=== PATIENT | male | born 1965 | race Caucasian/White ===

== ENCOUNTER → 2018-01-07 | Outpatient (CLI) | payer OTHER ==
[~2018-01-07] MED LIST: ACET-1600 PO; IBUP200C8 PO
== END | disposition home or self-care (01) ==
LOC: STAR 12:30
PROVIDERS: ATTEND Surgery
DX: Z02.9 Encounter for administrative examinations, unspecified (principal)

== ENCOUNTER 2018-01-12 07:39 | Day surgery (SDC) | payer OTHER ==
[~2018-01-12] VITALS: Ht 182.9 cm; Wt 105.8 kg
[~2018-01-12 07:39] MED LIST changes: +BUPIVACAINE/PF-EPI 0.5% 1:200K ONE
[2018-01-12] MEDS ORDERED: LACTATED RINGERS 1,000 ML IV SCH (08:13)
[2018-01-12] MEDS ORDERED: ACETAMINOPHEN 500 MG TABLET ONE (08:21)
[2018-01-12] MEDS ORDERED: MEPERIDINE/PF 25MG/0.5ML IVPush PRN (08:30)
[2018-01-12] MEDS ORDERED: LABETALOL 5MG/ML, 20ML IV PRN (08:30)
[2018-01-12] MEDS ORDERED: HYDROmorphone 1 MG/ML, 1ML IV PRN (08:30)
[2018-01-12] MEDS ORDERED: PROCHLORPERAZINE 5 MG/ML, 2ML IV PRN (08:30)
[2018-01-12] MEDS ORDERED: HALOPERIDOL 5 MG/ML IV PRN (08:30)
[2018-01-12] MEDS ORDERED: FENTANYL PF 100 MCG/2ML IV PRN (08:30)
[2018-01-12] MEDS ORDERED: ACETAMINOPHEN 500 MG TABLET PO ONE (08:30)
[2018-01-12] MEDS ORDERED: DIPHENHYDRAMINE 50 MG/ML, 1ML IVPush PRN (08:30)
[2018-01-12] MEDS ORDERED: hydrALAzine 20 MG/ML, 1ML IV PRN (08:30)
[2018-01-12] MEDS ORDERED: PROMETHAZINE 25 MG/ML, 1ML IV PRN (08:30)
[2018-01-12] MEDS ORDERED: FENTANYL PF 100 MCG/2ML ONE ×2 (10:14→11:06)
[2018-01-12] MEDS ORDERED: ROCURONIUM 10MG/ML,5ML ONE (11:09)
[2018-01-12] MEDS ORDERED: DEXAMETHASONE 4 MG/ML, 1ML ONE (11:09)
[2018-01-12] MEDS ORDERED: CEFAZOLIN 1,000 MG ONE (11:09)
[2018-01-12] MEDS ORDERED: ONDANSETRON 2MG/ML, 2ML ONE (11:09)
[2018-01-12] MEDS ORDERED: PROPOFOL 10 MG/ML, 20ML ONE (11:09)
[2018-01-12] MEDS ORDERED: NEOSTIGMINE 1 MG/ML, 10ML ONE (11:09)
[2018-01-12] MEDS ORDERED: SUCCINYLCHOLINE 20 MG/ML, 10ML ONE (11:09)
[2018-01-12] MEDS ORDERED: GLYCOPYRROLATE 0.2MG/1ML, 5ML ONE (11:09)
[2018-01-12] MEDS ORDERED: OXYcodone 5 MG/5 ML ORAL.SOL UDC ONE ×2 (11:44→11:58)
[2018-01-12] MEDS: OXYcodone 5 MG/5 ML ORAL.SOL UDC PO PRN ×2 (11:45→11:59)
== END 2018-01-12 13:10 | disposition home or self-care (01) ==
LOC: OUT 07:39
PROVIDERS: ATTEND Surgery
DX: D17.0 Benign lipomatous neoplasm of skin and subcutaneous tissue of head, face and neck (principal); I10 Essential (primary) hypertension; F10.21 Alcohol dependence, in remission; Z87.891 Personal history of nicotine dependence
CPT/HCPCS: 21552; 88304; J0330; J0690; J1100; J1200; J2405; J2704; J2710; J3010; J3490; J7120; 88305